=== PATIENT | male | born 1960 | race Two or more races ===

== ENCOUNTER → 2024-07-12 | Outpatient (CLI) | payer OTHER, SELFPAY ==
--- NOTE | 2024-07-12 13:14 | XR_ITS ---
Examination: Lumbar spine 7 views TECHNIQUE: AP, lateral, standing lateral flexion standing lateral extension coned lateral lower lumbar spine, GA RUBÉN total 7 views Exam date and time: July 12, 2024 1328 hours INDICATIONS: Lower back pain beginning 2 years ago. FINDINGS: Mild osteopenia Mild diffuse facet arthropathy No lumbar fracture Grade 1 anterolisthesis L5 on S1 Moderate disc narrowing posteriorly L5-S1 IMPRESSION: Moderate disc narrowing posteriorly L5-S1
== END | disposition home or self-care (01) ==
LOC: SDIM 12:48
PROVIDERS: PCP Orthopaedic Surgery; Referring Provider Orthopaedic Surgery; Visit Provider Orthopaedic Surgery
DX: M48.07 Spinal stenosis, lumbosacral region (principal)
CPT/HCPCS: 72114